=== PATIENT | male | born 1955 | race African-American/Black ===

== ENCOUNTER → 2019-07-07 | Outpatient (CLI) | payer OTHER ==
--- NOTE | 2019-07-07 10:52 | RADIOLOGY REPORT (SQ) ---
EXAM DESCRIPTION: CT ABD/PELVIS WITH IV ONLY COMPLETED DATE/TIME: 07/07/2019 9:07 am REASON FOR STUDY: INCISIONAL HERNIA W/O OBSTRUCTION OR GANGRENE (K43.2) K43.2 INCISIONAL HERNIA WIT HOUT OBSTRUCTION OR GANGRENE COMPARISON: None. TECHNIQUE: CT scan of the abdomen and pelvis performed using helical scanning technique with dynamic intravenous contrast injection. No oral contrast. Images reviewed with lung, soft tissue, and bone windows. Reconstructed coronal and sagittal MPR images reviewed. Delayed images for evaluation of the urinary system also acquired. All images stored on PACS. All CT scanners at this facility use dose modulation, iterative reconstruction, and/or weight based d osing when appropriate to reduce radiation dose to as low as reasonably achievable (ALARA). [facility]: Dose Right [facility]: CareDose [facility]: Dose Right [facility]: Teradose 4D [facility]: Pax8 CONTRAST TYPE AND DOSE: contrast/concentration: Isovue 350.00 mg/ml; Total Contrast Delivered: 87.0 ml; Total Saline Delivered: 69.0 ml RENAL FUNCTION: GFR > 60. RADIATION DOSE: CT Rad equipment meets quality standard of care and radiation dose reduction techniq ues were employed. CTDIvol: 13.8 - 13.8 mGy. DLP: 1467 mGy-cm.. LIMITATIONS: None. FINDINGS: LOWER CHEST: Three-vessel coronary artery calcifications. No nodules or infiltrates. LIVER: Hepatomegaly and hepatic steatosis. No masses. No dilated ducts. SPLEEN: Normal size. No focal lesions. PANCREAS: No masses. No significant calcifications. No adjacent inflammation or peripancreatic fluid collections. Pancreatic duct not dilated. GALLBLADDER: No identified stones by CT criteria. No inflammatory changes to suggest cholecystitis. ADRENAL GLANDS: No significant masses or asymmetry. RIGHT KIDNEY AND URETER: No solid masses. No significant calcifications. No hydronephrosis or hyd roureter. LEFT KIDNEY AND URETER: No solid masses. No significant calcifications. No hydronephrosis or hydr oureter. AORTA AND VESSELS: No aneurysm. No dissection. Renal arteries, SMA, celiac without stenosis. RETROPERITONEUM: No retroperitoneal adenopathy, hemorrhage or masses. BOWEL AND PERITONEAL CAVITY: No masses or inflammatory changes. No free fluid or peritoneal masses. Scattered pancolonic diverticula. Evidence of prior sigmoid colon resection. APPENDIX: Normal. PELVIS: No mass. No free fluid. Normal bladder. ABDOMINAL WALL: No masses. There is evidence of a prior low midline laparotomy with a fat containing ventral hernia at the superior left aspect of the incision measuring approximately 4.2 x 3.5 cm (ser ies 2, image 57). There is no evidence of bowel involvement. BONES: No significant or acute findings. OTHER: No other significant finding. IMPRESSION: 1. Evidence of prior sigmoid colon resection. 2. There is evidence of a prior low midline laparotomy with a fat containing ventral hernia at the ga perior left aspect of the incision measuring approximately 4.2 x 3.5 cm (series 2, image 57). There is no evidence of bowel involvement. 3. Hepatomegaly and hepatic steatosis. TECHNICAL DOCUMENTATION: JOB ID: [id number] Quality ID # [id number]: Final reports with documentation of one or more dose reduction techniques (e.g., Au tomated exposure control, adjustment of the mA and/or kV according to patient size, use of iterative reconstruction technique) 2010 [employer]- All Rights Reserved Reading location - IP/workstation name: [email or web address]
== END ==
LOC: RAD 08:09
PROVIDERS: ATTEND Surgery
DX: K43.2 Incisional hernia without obstruction or gangrene (principal)
CPT/HCPCS: 74177; 82565

== ENCOUNTER 2019-08-17 06:52 | Day surgery (SDC) | payer OTHER ==
[2019-08-12 09:56] LABS: HEMATOCRIT 46.2 % (37.9-51.0); HEMOGLOBIN 16.1 g/dL (13.5-17.0); MEAN CORPUSCULAR HEMOGLOBIN 31.3 pg (27.0-33.4); MEAN CORPUSCULAR HGB CONC 34.9 g/dL (32.0-36.0); MEAN CORPUSCULAR VOLUME 90 fl (80-97); PLATELET COUNT 202 10^3/uL (150-450); RED BLOOD COUNT 5.14 10^6/uL (4.35-5.55); WHITE BLOOD COUNT 7.9 10^3/uL (4.0-10.5)
[2019-08-12 10:25] LABS: ANION GAP 12 (5-19); BLOOD UREA NITROGEN 15 mg/dL (7-20); CALCIUM 9.8 mg/dL (8.4-10.2); CARBON DIOXIDE 28 mmol/L (22-30); CHLORIDE 101 mmol/L (98-107); GLUCOSE 124 mg/dL (75-110)
[2019-08-12 11:16] LABS: ABSOLUTE LYMPHOCYTES# (MANUAL) 1.5 10^3/uL (0.5-4.7); ABSOLUTE MONOCYTES # (MANUAL) 0.9 10^3/uL (0.1-1.4); BASOPHILS % (MANUAL) 0 % (0-2); EOSINOPHILS % (MANUAL) 4 % (0-6); LYMPHOCYTES % (MANUAL) 16 % (13-45); MONOCYTES % (MANUAL) 12 % (3-13); NUCLEATED RED BLOOD CELLS 2 /100 WBC (0); SEGMENTED NEUTROPHILS % (MAN) 65 % (42-78); TOTAL CELLS COUNTED 100
[2019-08-12 11:19] LABS: ANISOCYTOSIS SLIGHT; OVALOCYTES SLIGHT; PLATELET CLUMPS PRESENT; PLATELET COMMENT ADEQUATE; POLYCHROMASIA SLIGHT
[~2019-08-17 06:52] MED LIST: CEFAZOLIN 1 GM/D5W RTU 1 GM/50 ML RTUPB IV ONE; CEFAZOLIN 1 GM/D5W RTU 1 GM/50 ML RTUPB IV PRN; LACTATED RINGERS 1000 ML IV PRN; LIDOCAINE 0.5% INJ-PF (5 MG/ML) 50 ML SDV SUBCUT PRN
[2019-08-17] MEDS ORDERED: DEXAMETHASONE SOD PHOSPHATE INJ 4 MG/1 ML VIAL ONE (08:24)
[2019-08-17] MEDS ORDERED: FENTANYL CITRATE INJ/PF 250 MCG/5 ML AMPULE ONE (08:24)
[2019-08-17] MEDS ORDERED: MIDAZOLAM 2 MG/2 ML INJ ONE (08:24)
[2019-08-17] MEDS ORDERED: ONDANSETRON HCL INJ/PF 4 MG/2 ML SDV ONE (08:24)
[2019-08-17] MEDS ORDERED: LIDOCAINE 2% INJ-PF (20 MG/ML) 10 ML AMPUL ONE (08:24)
[2019-08-17] MEDS ORDERED: PROPOFOL INJ 200 MG/20 ML VIAL IV ONE (08:25)
[2019-08-17] MEDS ORDERED: BUPIVACAINE HCL 0.25 % INJ/PF (2.5 MG/1 ML) 30 ML VIAL ONE (08:29)
[2019-08-17] MEDS ORDERED: ONDANSETRON HCL INJ/PF 4 MG/2 ML SDV IV PRN ×2 (09:21→11:13)
[2019-08-17] MEDS ORDERED: MEPERIDINE HCL/PF INJ 25 MG/1 ML DISP.SYRIN IV PRN (09:21)
[2019-08-17] MEDS ORDERED: FENTANYL CITRATE INJ/PF 100 MCG/2 ML AMPUL IV PRN ×3 (09:21)
[2019-08-17] MEDS ORDERED: MORPHINE SULFATE 10 MG/ML INJ IV PRN (09:21)
[2019-08-17] MEDS ORDERED: DIPHENHYDRAMINE HCL 50 MG/ML VIAL IV PRN (09:21)
[2019-08-17] MEDS ORDERED: PROMETHAZINE HCL INJ 25 MG/1 ML VIAL IV PRN (09:21)
[2019-08-17] MEDS ORDERED: OXYCODONE-ACETAMINOPHEN 5-325 MG TABLET PO PRN ×2 (09:21)
[2019-08-17] MEDS ORDERED: KETOROLAC TROMETHAMINE 60 MG/2 ML SDV ONE (10:38)
[2019-08-17] MEDS ORDERED: GLYCOPYRROLATE 1 MG/5 ML VIAL ONE (10:38)
[2019-08-17] MEDS ORDERED: PHENYLEPHRINE HCL INJ/PF 10 MG/1 ML SDV ONE (10:38)
[2019-08-17] MEDS ORDERED: NEOSTIGMINE METHYLSULFATE 10 MG/10 ML VIAL ONE (10:38)
[2019-08-17] MEDS ORDERED: KETOROLAC TROMETHAMINE INJ/PF 30 MG/1 ML SDV IV PRN (11:13)
--- NOTE | 2019-08-17 11:13 | Operative Report ---
Operative Report DATE OF SURGERY: 08/17/19 PREOPERATIVE DIAGNOSIS: 1. Multiple abdominal wall hernias with incarceration. 2. Previous extensive abdominal surgery POSTOPERATIVE DIAGNOSIS: Same with multiple abdominal wall hernias, and extensive intra-abdominal adhesions OPERATION: 1. Extensive laparoscopic lysis of adhesions approximately 1-1/2 hours. 2. Laparoscopic closure of abdominal wall hernia, and reinforcement of abdominal wall with 20 x [address] mesh SURGEON: GRACE NOEL ANESTHESIA: GA TISSUE REMOVED OR ALTERED: None COMPLICATIONS: None ESTIMATED BLOOD LOSS: Scant INTRAOPERATIVE FINDINGS: See below PROCEDURE: The patient was seen in the preop holding area then taken to the main operating room and general anesthesia was induced. Arms were abducted, Cerda catheter inserted, with return of clear yellow urine. The abdomen was exposed, prepped and draped sterile fashion with Betadine Surgical plan and surgical time were conducted. Abdominal wall findings significant for a large midline abdominal wall scar, and a left lower quadrant transverse scar consistent with previous colostomy. There was a palpable mass to the left of the umbilicus consistent with incarcerated hernia. We approached the abdominal wall of the right upper quadrant entry. Skin was anesthetized with quarter percent Marcaine, lew made in the skin with 11 blade, and a Veress needle inserted into the right upper quadrant. Pneumoperitoneum was established, Veress needle was removed, and a 5 mm port was inserted and a 5 mm flexible scope was inserted. Findings were significant for no evidence of vascular or visceral injury to the peritoneal cavity. There were extensive adhesions between the anterior abdominal wall and the greater omentum. This extended from the falciform ligament all the way down to the pelvis. A second 5 mm port was placed in the patient's right lower quadrant, and adhesio lysis was undertaken. The entire length of the adhesion down took approximately 1.5 hours. This is performed using blunt, sharp, and sure dissection. Adhesions were taken down between the greater omentum, and the anterior abdominal wall. We placed a third port in the midline, epigastric area. This facilitated exposure and dissection. 2 additional 5 mm ports were placed one in the left upper quadrant and one in the left lower quadrant. Of note, loop of small bowel was adhesed to the anterior abdominal wall below the colostomy scar. Photos were taken. Adhesio lysis was performed under excellent visualization with sharp dissection using disposable scissors. There was no violation of the serosa. This was performed very carefully. All adhesions bet ween the greater omentum and anterior abdominal wall were taken down. We checked the small bowel again left lower quadrant and there was no evidence of bowel leak. We now spent a fair amount of time examining the anterior abdominal wall. There were multiple adhesions consistent with Indian cheese defects. Photos were taken. The dominant left of midline hernia with incarcerated fat was completely reduced. We now proceeded to close this defect transversely with 2 [id number] 1 PDS sutures. Sutures were passed transabdominally through a small lew in the skin with the 11 blade. Pneumoperitoneum was decompressed, and the sutures were tied securely with knots. This effectively closed the 2 and half centimeter dominant fascial defect. As stated, there were multiple small fascial defects throughout the abdominal wall midline subxiphoid area down to the infraumbilical area. Posted these defects were 5 mm to a centimeter in length. I felt that the most appropriate management strategy would be to place a large piece of mesh encompassing the entire anterior midline scar, and a Indian cheese like holes in the fascia. Brought onto the field a non- 20 x [address] mesh by [employer]. It was oriented, with 0 PDS sutures placed at the 12, 3, 6, 9:00 positions. The mesh was moistened, rolled, and brought through the anterior abdominal wall and 1 of the right lower quadrant port sites. The mesh was unfolded successfully and oriented accordingly. The mesh was then brought up to the anterior abdominal wall using the 0 PDS sutures. Appropriate level of local anesthetic was applied to the anterior abdominal wall at the 12, 3, 6, 9:00 positions. Lew was made in the skin at the 12 o'clock position, and the previously placed 0 PDS sutures brought up to the anterior abdominal wall. This was repeated at the 3, 6, 9:00 positions. All sutures were then brought up to the anterior abdominal wall, pneumoperitoneum decompressed, and knots tied. We returned the peritoneal cavity and were satisfied that the mesh was appropriately splayed out against the anterior abdominal wall. Now secured in the intervening areas with approximately 40 SorbaFix fasteners. This was accomplished multiple photographs were taken. We were satisfied with the reconstruction in the abdominal wall. We felt the operation was complete. Again we checked for bleeding and there was none. Stomach and small bowel again inspected and no evidence of lenz of the lumen of either organ. All ports removed under direct visualization, pneumoperitoneum was evacuated, and wounds closed with 3-0 Vicryl, benzoin and Steri-Strips. Abdominal wall binder placed. Patient tolerated procedure well, extubated, Cerda catheter left in, patient taken recovery in stable condition.
[2019-08-17] MEDS ORDERED: ACETAMINOPHEN INJ/PF 1000 MG/100 ML SDV IV SCH (12:00)
[2019-08-17] MEDS ORDERED: ACETAMINOPHEN 1,000 MG/100 ML RTUPB IV ONE (12:19)
[2019-08-17] MEDS: ACETAMINOPHEN 1,000 MG/100 ML RTUPB IV SCH ×3 (15:18→23:49)
[2019-08-17] MEDS: KETOROLAC TROMETHAMINE 10 MG TABLET PO PRN ×2 (15:46→22:25)
[2019-08-18] MEDS: ACETAMINOPHEN 1,000 MG/100 ML RTUPB IV SCH (05:23)
[2019-08-18] MEDS: KETOROLAC TROMETHAMINE 10 MG TABLET PO PRN (05:48)
[2019-08-18 08:14] VITALS: BP 126/80
--- NOTE | 2019-08-18 10:23 | PDOC DISCHARGE SUMMARY ---
General - Admit/Disc Date/PCP Admission Date/Primary Care Provider: LOUISE ADLER Discharge Date: 08/18/19 - Discharge Diagnosis Final Diagnosis: Multiple abdominal wall hernias - Assessment Summary: The patient is a 64-year-old Afro-Greek male with a history of previous abdominal surgery, multiple scars, and multiple abdominal wall hernias. He is brought through ambulatory surgery for operative repair. The procedures performed dictated separately by Dr. Escobedo. Patient tolerated the operation well and was recovered on the floor. Because of the extensiveness of the dissection, and the large mesh installed, he was kept overnight for observation. His pain was appropriately managed. His Cerda catheter was removed the following morning. He was started on a diet and tolerated this well. By the midmorning of the first postoperative day he was felt to be ready for discharge home. Discharge plan: Patient will follow-up with Dr. Escobedo in 1 to 2 weeks at [facility], resume preoperative medications, diet, activity. Will take Tylenol, Motrin and Toradol as needed for pain. - Additional Information Discharge Diet: Regular Discharge Activity: Activity As Tolerated Referrals: GRACE ESCOBEDO MD [ACTIVE STAFF] - 08/26/19 1:15 pm Home Medications: Aspirin [Ecotrin] 2 tab PO DAILY 08/12/19 Atenolol [Tenormin] 25 mg PO QAM 08/12/19 Metformin HCl 1,000 mg PO QAM 08/12/19 Naproxen [Naprosyn] 1,000 mg PO QAM 08/12/19 Tramadol HCl [Ultram] 50 mg PO TID 08/12/19 Valsartan 40 mg PO QAM 08/12/19 History of Present Illiness History of Present Illness: CECE LEE is a 64 year old male Physical Exam Vital Signs: Temp Pulse Resp BP Pulse Ox 97.7 F 65 16 126/80 H 95 08/18/19 08:05 08/18/19 08:05 08/18/19 08:05 08/18/19 08:05 08/18/19 08:05 Intake & Output 08/17/19 08/18/19 08/19/19 06:59 06:59 06:59 Intake Total 3030 Output Total 1925 Balance 1105 Weight 104.7 kg Results Laboratory Results: WBC 7.9 10^3/uL (4.0-10.5) 08/12/19 09:14 RBC 5.14 10^6/uL (4.35-5.55) 08/12/19 09:14 Hgb 16.1 g/dL (13.5-17.0) 08/12/19 09:14 Hct 46.2 % (37.9-51.0) 08/12/19 09:14 MCV 90 fl (80-97) 08/12/19 09:14 MCH 31.3 pg (27.0-33.4) 08/12/19 09:14 MCHC 34.9 g/dL (32.0-36.0) 08/12/19 09:14 RDW 14.0 % (11.5-14.0) 08/12/19 09:14 Plt Count 202 10^3/uL (150-450) 08/12/19 09:14 Lymph % (Auto) Not Reportable 08/12/19 09:14 Riley % (Auto) Not Reportable 08/12/19 09:14 Eos % (Auto) Not Reportable 08/12/19 09:14 Baso % (Auto) Not Reportable 08/12/19 09:14 Absolute Neuts (auto) Not Reportable 08/12/19 09:14 Absolute Lymphs (auto) Not Reportable 08/12/19 09:14 Absolute Monos (auto) Not Reportable 08/12/19 09:14 Absolute Eos (auto) Not Reportable 08/12/19 09:14 Absolute Basos (auto) Not Reportable 08/12/19 09:14 Total Counted 100 08/12/19 09:14 Seg Neutrophils % Not Reportable 08/12/19 09:14 Seg Neuts % (Manual) 65 % (42-78) 08/12/19 09:14 Lymphocytes % (Manual) 16 % (13-45) 08/12/19 09:14 Atypical Lymphs % 3 % (0) 08/12/19 09:14 Monocytes % (Manual) 12 % (3-13) 08/12/19 09:14 Eosinophils % (Manual) 4 % (0-6) 08/12/19 09:14 Basophils % (Manual) 0 % (0-2) 08/12/19 09:14 Abs Neuts (Manual) 5.1 10^3/uL (1.7-8.2) 08/12/19 09:14 Abs Lymphs (Manual) 1.5 10^3/uL (0.5-4.7) 08/12/19 09:14 Abs Monocytes (Manual) 0.9 10^3/uL (0.1-1.4) 08/12/19 09:14 Absolute Eos (Manual) 0.3 10^3/uL (0.0-0.6) 08/12/19 09:14 Abs Basophils (Manual) 0.0 10^3/uL (0.0-0.2) 08/12/19 09:14 Nucleated RBCs 2 /100 WBC (0) 08/12/19 09:14 Clumped Platelets PRESENT 08/12/19 09:14 Platelet Comment ADEQUATE 08/12/19 09:14 Polychromasia SLIGHT 08/12/19 09:14 Anisocytosis SLIGHT 08/12/19 09:14 Ovalocytes SLIGHT 08/12/19 09:14 Sodium 140.6 mmol/L (137-145) 08/12/19 09:14 Potassium 4.0 mmol/L (3.6-5.0) 08/12/19 09:14 Chloride 101 mmol/L (98-107) 08/12/19 09:14 Carbon Dioxide 28 mmol/L (22-30) 08/12/19 09:14 Anion Gap 12 (5-19) 08/12/19 09:14 BUN 15 mg/dL (7-20) 08/12/19 09:14 Creatinine 0.86 mg/dL (0.52-1.25) 08/12/19 09:14 Est GFR ( Amer) > 60 (>60) 08/12/19 09:14 Est GFR (MDRD) Non-Af > 60 (>60) 08/12/19 09:14 Glucose 124 mg/dL (75-110) H 08/12/19 09:14 POC Glucose 142 mg/dL (70-110) H 08/17/19 12:07 Calcium 9.8 mg/dL (8.4-10.2) 08/12/19 09:14
== END 2019-08-18 10:21 | disposition home or self-care (01) ==
LOC: OROUT 06:52 → 5 14:30 → OROUT 08-18 10:21
PROVIDERS: ATTEND Surgery
DX: K43.6 Other and unspecified ventral hernia with obstruction, without gangrene (principal); I10 Essential (primary) hypertension; E11.9 Type 2 diabetes mellitus without complications; Z87.891 Personal history of nicotine dependence; Z79.84 Long term (current) use of oral hypoglycemic drugs; Z79.82 Long term (current) use of aspirin; Z79.899 Other long term (current) drug therapy
CPT/HCPCS: 36415; 82962; 85025; 80048; 94799; 00790; 49329; 49653; C1781; C1713; J2250; J0690; J1100; J1885; J3010; J2710; J2370; J2405; J7120; J3490 ×4; J2704; J0131 ×2; 790